=== PATIENT | female | born 1935 | race Caucasian/White ===

== ENCOUNTER → 2016-05-06 | Outpatient (CLI) | payer MEDICARE ==
--- NOTE | 2016-05-06 15:21 | KCIC ---
Left breast digital screening mammograms with CAD: HISTORY Routine screening. History of right breast cancer with mastectomy and implant reconstruction. COMPARISON Comparison is made to previous studies dated 02/19/2015 and 10/28/2013. FINDINGS Breast density category A. The skin and nipple show no abnormalities. No abnormal lymph nodes are seen in the axilla. Left breast implant remains in place. The breast parenchyma is predominately fatty. There are no dominant masses, suspicious calcifications or architectural distortions. IMPRESSION No evidence of malignancy. Recommend routine annual mammographic screening. This study was interpreted with the benefit of Computerized Aided Detection (CAD). Mammography is not 100% sensitive in detecting breast cancer. Therefore, a self breast exam and a clinical breast exam are very important. A negative mammogram does not negate a clinically suspicious finding and should not result in a delay in biopsying a clinically suspicious abnormality. BI-RADS category 1. Negative. This patient's information has been entered into a reminder system for the patient to be notified with the results of this examination and a target date for her next mammograms. Electronically signed by: Rakel Mancilla MD (May 06, 2016 15:19:43)
== END | disposition home or self-care (01) ==
LOC: KCIC MAMMO 13:40
PROVIDERS: ATTEND Family Medicine
DX: Z12.31 Encounter for screening mammogram for malignant neoplasm of breast (principal)
CPT/HCPCS: G0202; 77067

== ENCOUNTER 2016-11-06 17:49 | Emergency (ER) | payer BC, MEDICARE ==
[~2016-11-06] VITALS: Ht 177.8 cm; Wt 52.6 kg
[2016-11-06] MEDS ORDERED: DIPHTH,PERTUSS(ACELL),TET TOX 0.5 ML DISP.SYRIN. VAX IM ONE (20:00)
--- NOTE | 2016-11-06 20:33 | RAD ---
CT HEAD AND CERVICAL SPINE without contrast Clinical indications: The patient fell; headache and neck pain. COMPARISON: None available. HEAD CT WITHOUT CONTRAST Technique: Noncontrast axial cross sectional scanning of the head was performed. PQRS compliance Statement One or more of the following individualized dose reduction techniques were utilized for these studies: 1. Automated exposure control 2. Adjustment of the mA and/or kV according to patient size 3. Use of iterative reconstruction technique Findings: No acute intracranial hemorrhage or midline shift or mass-effect or hydrocephalus or extra-axial fluid collection is seen. No focal hypodense area or sulci effacement is seen to indicate an acute infarct or edema radiographically. No skull fracture or pneumocephalus is seen. No opacification of the mastoid sinuses or the paranasal sinuses is seen. The maxillary sinuses are not completely seen in this study. Impression: No acute intracranial abnormality is seen. CERVICAL SPINE CT WITHOUT CONTRAST TECHNIQUE: Noncontrast helical CT scanning of the cervical spine was performed. Multiplanar 2-D reconstructions were generated. FINDINGS: No acute fracture or discitis or osteolytic process or anterolisthesis is seen.There is degenerative endplate spurring and disc space narrowing throughout the cervical spine. Degenerative facet arthropathy is seen throughout the cervical spine. The facet joints are normally aligned otherwise. Biapical scarring is seen. IMPRESSION: No acute fracture. Degenerative cervical spondylosis. Electronically signed by: Luke Avendano MD (11/06/2016 8:30 PM) [facility]
--- NOTE | 2016-11-06 21:30 | PHYS DOC ---
Past Medical History Past Medical History: A-Fib, Cancer Past Surgical History: Cancer Surgery, Hip Replacement, Hysterectomy Additional Past Surgical Histo: R MASECTOMY, L HIP REPLACED, L SHOULDER SURGERY Alcohol Use: None Drug Use: None Adult General Chief Complaint Chief Complaint: MECHANICAL FALL HPI HPI 81-year-old female presenting to the emergency department today with neck pain and headache after head injury that happened today. She reports having a mechanical fall. This occurred prior to arrival. She denies using blood thinners other than taking a full dose aspirin daily. She also sustained a laceration to the back of her head after falling and hitting the back of her head. She has pain in the back of her head that is mild intermittent nonradiating sharp and without alleviating factors. Review of systems is negative for chest pain shortness of breath abdominal pain or if any injuries to her extremities. She denies passing out or syncopal episode. All other review of systems is negative unless otherwise noted in history of present illness. ED course: 79-year-old female presenting to the emergency department today with a mechanical fall status post head injury. She did sustain a laceration to the back of her head. Vital signs were unremarkable other than mild chronic hypertension. Pertinent physical examination findings showed a 3 cm laceration to the posterior occiput. Tetanus updated. Head neck CT unremarkable. The wound was irrigated and subsequently closed with lashawn. The remainder the patient secondary survey was unremarkable for traumatic injury. The patient was then discharged home in stable condition to follow up with their primary care physician over the next 2-3 days. They were to return if their symptoms worsened or if they were concerned for any reason. [id number] discharge instructions and return precautions were given. Patient's questions were answered to their satisfaction. Patient is comfortable plan. Review of Systems Review of Systems SEE ABOVE. Current Medications Current Medications Current Medications Medications (Trade) Dose Ordered Sig/Arnaldo Start Time Stop Time Status Last Admin Dose Admin Diphtheria/ Tetanus/Acell Pertussis (Boostrix) 0.5 ml ONCE ONCE 11/06/16 20:00 11/06/16 20:01 DC 11/06/16 20:27 0.5 ML Allergies Allergies Allergies Coded Allergies Type Severity Reaction Last Updated Verified No Known Drug Allergies 11/06/16 No Physical Exam Physical Exam SEE ABOVE General Appearance alert, cooperative, no distress, responsive Head Normocephalic, . 3cm lac to posterior occiput without any evidence of depressed skull fracture. Eyes conjunctivae/corneas clear. PERRL, EOM's intact. Ears nl external ear canals AU Nose Nares normal. Septum midline. Mucosa normal. No drainage or sinus tenderness. Throat no blood or lacerations, normal alignment Neck supple, symmetrical, trachea midline, cervical collar in place Back/Spine symmetric, normal curvature. ROM normal, no abrasions, no tenderness to palpation, no step-offs Lungs clear to auscultation bilaterally Chest Wall normal ribcage without tenderness to palpation, crepitus or emphysema Heart [reg] rate and regular rhythm, S1, S2 normal, no murmur, click, rub or gallop Abdomen soft, non-tender. Bowel sounds normal. No masses, no organomegaly Pelvic stable Extremities extremities normal, atraumatic with normal range of motion Pulses 2+ and symmetric Skin Skin color, texture, turgor normal. No rashes or lesions Neurologic Grossly normal Eye opening: (4) spontaneous Best motor response: (6) obeys verbal command Best verbal response: (5) oriented and converses Total Winfred (E + M + V) = 15 Current Patient Data Vital Signs Vital Signs Date Time Temp Pulse Resp B/P (MAP) Pulse Ox O2 Delivery O2 Flow Rate FiO2 11/06/16 22:00 90 22 146/78 (100) 97 Room Air 11/06/16 19:20 98.4 98.4 EKG EKG [] Radiology/Procedures Radiology/Procedures [] Course & Med Decision Making Course & Med Decision Making Pertinent Labs and Imaging studies reviewed. (See chart for details) [] Dragon Disclaimer Dragon Disclaimer This electronic medical record was generated, in whole or in part, using a voice recognition dictation system. Departure Departure Impression: Primary Impression: Neck pain Additional Impressions: Head injury Laceration of head Disposition: HOME, SELF-CARE Condition: STABLE Referrals: JESUS MANUEL MARTINEZ MD (PCP) Additional Instructions: Thank you for allowing us to participate in your care today. Followup with your primary care physician in 3 days if your symptoms do not improve. Call your Primary Doctor tomorrow and inform them of your visit today. If you do not have a primary care provider you can ask for a list of our primary care providers. Return to the emergency department you have any new or concerning findings. This should be evaluated by the primary care physician and any necessary consulting services for continued management within a few days after discharge. Return to emergency room if you have any new or concerning symptoms including but not limited to fever, chills, nausea, vomiting, intractable pain, any new rashes, chest pain, shortness of air, uncontrolled bleeding, difficulty breathing, and/or vision loss. You may have been prescribed medication that can change in your level of thinking and ability to operate machinery. These medications include hydrocodone and Ativan. Also, Benadryl has been known to do this as well. Be sure to check with your pharmacist and ask if the medications you've prescribed can affect your level of consciousness. I recommend not operating heavy machinery or driving while on medication such as these. Scripts Hydrocodone Bit/Acetaminophen (HYDROCODONE-APAP 5-325 ) 1 Each Tablet 1 TAB PO PRN Q6HRS Y for PAIN, #15 TAB 0 Refills Be careful as this medication may cause you to be drowsy or tired. Do not drive on this medication. Prov: CAESAR GALLEGOS MD 11/06/16 Problem Qualifiers CAESAR GALLEGOS MD Nov 06, 2016 21:30
[2016-11-06 22:00] VITALS: BP 146/78
[2016-11-06] MEDS ORDERED: HYDR-2758 PO (22:56)
--- NOTE | 2016-11-07 06:19 | EKG ---
[facility] [address] [place] [address] Test Date: 2016-11-06 Test Time: 19:39:19 Pat Name: BRADLEY GODOY Department: Room: Gender: F Desktop Administrator: : [id number] Requested By: CAESAR GALLEGOS Order Number: [id number] Reading MD: Measurements Intervals [place] Rate: 91 P: 161 NE: 170 QRS: -36 QRSD: 130 T: 70 QT: 400 QTc: 494 Interpretive Statements SINUS RHYTHM ABNORMAL LEFT AXIS DEVIATION LEFT ANTERIOR FASCICULAR BLOCK NON SPECIFIC INTRAVENTRICULAR BLOCK QRS(T) CONTOUR ABNORMALITY CONSISTENT WITH ANTEROSEPTAL INFARCT PROBABLY OLD RI6.01 Unconfirmed report No previous ECG available for comparison
== END 2016-11-06 23:00 | disposition home or self-care (01) ==
LOC: ER 17:49
DX: S01.01XA Laceration without foreign body of scalp, initial encounter (principal); M54.2 Cervicalgia; I48.91 Unspecified atrial fibrillation; I10 Essential (primary) hypertension; Z90.710 Acquired absence of both cervix and uterus; Z96.642 Presence of left artificial hip joint; W18.09XA Striking against other object with subsequent fall, initial encounter; Y93.89 Activity, other specified; Y99.8 Other external cause status; Y92.89 Other specified places as the place of occurrence of the external cause
CPT/HCPCS: 70450; 72125; 90471; 90715; 93005; 99284-25

== ENCOUNTER → 2017-05-25 | Outpatient (CLI) | payer BC | END | disposition home or self-care (01) | LOC: KCIC MAMMO 15:34 | DX: Z12.31 Encounter for screening mammogram for malignant neoplasm of breast (principal); Z85.3 Personal history of malignant neoplasm of breast | CPT/HCPCS: 77067 ==

== ENCOUNTER → 2018-07-26 | Outpatient (CLI) | payer BC ==
[~2018-07-26] MED LIST: HYDR-2761 PO
[2018-07-26 10:42] LABS: ALBUMIN 3.9 g/dL (3.4-5.0); ALBUMIN/GLOBULIN RATIO 1.3 (1.0-1.7); CALCIUM 9.7 mg/dL (8.5-10.1); CREATININE 0.9 mg/dL (0.6-1.0); GFR 59.8; POTASSIUM 4.3 mmol/L (3.5-5.1); TOTAL BILIRUBIN 0.4 mg/dL (0.2-1.0); TOTAL PROTEIN 6.9 g/dL (6.4-8.2)
[2018-07-26 11:00] LABS: BASO % 1 % (0-3); EOS # 0.2 x10^3/uL (0.0-0.7); EOS % 3 % (0-3); HEMATOCRIT 39.5 % (36.0-47.0); HEMOGLOBIN 12.6 g/dL (12.0-15.5); LYMPH # 0.9 x10^3/uL (1.0-4.8); LYMPH % 18 % (24-48); MEAN CORPUSCULAR HEMOGLOBIN 30 pg (25-35); MEAN CORPUSCULAR HGB CONC 32 g/dL (31-37); MEAN CORPUSCULAR VOLUME 95 fL (79-100); MONO # 0.3 x10^3/uL (0.0-1.1); MONO % 7 % (0-9); NEUT # 3.7 x10^3uL (1.8-7.7); NEUT % 72 % (31-73); PLATELET COUNT 156 x10^3/uL (140-400); RED BLOOD COUNT 4.17 x10^6/uL (3.50-5.40); WHITE BLOOD COUNT 5.2 x10^3/uL (4.0-11.0)
[2018-07-26 14:08] LABS: BILIRUBIN,URINE NEGATIVE (NEG); CLARITY,URINE CLOUDY; COLOR,URINE YELLOW; NITRITE,URINE NEGATIVE (NEG); PH,URINE 5.5; PROTEIN,URINE NEGATIVE (NEG-TRACE)
[2018-07-26 14:24] LABS: BACTERIA,URINE MANY /HPF (0-FEW); RBC,URINE RARE /HPF (0-2); SQUAMOUS EPITHELIAL CELL,UR FEW /LPF
--- NOTE | 2018-07-26 16:32 | RAD ---
Renal ultrasound 07/26/2018 INDICATION: Renal failure COMPARISON STUDY: None FINDINGS: Right kidney is unremarkable in appearance measuring 9.6 cm in length. Left kidney is unremarkable in appearance measuring 1.6 cm in length. No focal renal lesion is seen on the right. No nephrolithiasis or hydronephrosis is seen. There is an infrarenal abdominal aortic aneurysm measuring approximately 2.9 cm in diameter. Limited visualization of the bladder is unremarkable. IMPRESSION: 1.Unremarkable sonographic appearance of the kidneys. 2. Infrarenal abdominal aortic aneurysm. Recommend imaging surveillance. Electronically signed by: Jose Kidd MD (07/26/2018 4:29 PM) [id number]
== END | disposition home or self-care (01) ==
LOC: US 15:54
PROVIDERS: ATTEND Internal Medicine Nephrology
DX: I71.4 Abdominal aortic aneurysm, without rupture (principal); N17.8 Other acute kidney failure; I11.0 Hypertensive heart disease with heart failure; I50.22 Chronic systolic (congestive) heart failure; E86.0 Dehydration; I70.1 Atherosclerosis of renal artery; N11.9 Chronic tubulo-interstitial nephritis, unspecified; N14.2 Nephropathy induced by unspecified drug, medicament or biological substance; Z68.1 Body mass index [BMI] 19.9 or less, adult
CPT/HCPCS: 36415; 76770; 80053; 81001; 85025

== ENCOUNTER → 2020-07-23 | Outpatient (CLI) | payer BC, MEDICARE ==
--- NOTE | 2020-07-23 16:03 | RAD ---
EXAM: 3 views left ankle DATE: 07/23/2020 11:05 AM INDICATION: Reason: NON-HEALING WOUND OF LEFT LATERAL ANKLE. / Spl. Instructions: / History: . COMPARISON: No Prior FINDINGS: No evidence of acute fracture or dislocation. Lucency at the medial talar dome likely osteochondral i njury or degenerative change. Given the associated cystic change, favor degenerative change. Calcanea l enthesopathy. Midfoot degenerative changes are seen. IMPRESSION: 1. No evidence of acute fracture or dislocation. 2. Ankle joint degenerative changes including talar dome irregularity and subchondral cystic change. Electronically signed by: Clyde Vo MD (07/23/2020 4:01 PM) [id number]
--- NOTE | 2020-07-24 08:42 | RAD ---
EXAM: LOWER EXTREMITY ARTERIAL DOPPLER SONOGRAM WITH ANKLE-BRACHIAL INDICES (ESTHER). HISTORY: Nonhealing ulcer left ankle. TECHNIQUE: Grayscale and Doppler sonographic evaluation of the lower extremities was performed and pr essure readings were assessed. FINDINGS: There are triphasic waveforms in the left common femoral artery and biphasic waveforms thro ughout the remainder of the left lower extremity arteries without significantly elevated velocities. No visualized focal stenosis. Left brachial pressure: 137 mmHg Left ankle pressure: 143 mmHg Left ankle ESTHER: 1.0 IMPRESSION: 1. No significant stenosis in the left lower extremity. 2. Normal ESTHER of 1.0. Electronically signed by: Richa Delgado MD (07/24/2020 8:39 AM) [id number]
== END ==
LOC: US 11:24
PROVIDERS: ATTEND Emergency Medicine Undersea and Hyperbaric Medicine
DX: I87.012 Postthrombotic syndrome with ulcer of left lower extremity (principal); L97.321 Non-pressure chronic ulcer of left ankle limited to breakdown of skin
CPT/HCPCS: 73610; 93922; 93926

== ENCOUNTER → 2020-08-14 | Outpatient (CLI) | payer BC, MEDICARE ==
[~2020-08-14] MED LIST changes: +GADOTERATE 5 MMOL/10ML VIAL. IVP ONE
--- NOTE | 2020-08-14 15:47 | RAD ---
Study: MRI left ankle with and without contrast INDICATION: Nonhealing wound at the lateral ankle. COMPARISON: Left ankle radiographs 07/23/2020 TECHNIQUE: Multiplanar MR imaging of the left ankle performed both prior to and after the intravenous administration of 11 cc Clariscan. FINDINGS: The sagittal T1 and T2 sequences are degraded by motion. There are some areas of incomplete fat suppr ession. Diagnostic utility is maintained. No signal changes of osteomyelitis at the ankle or throughout the partially imaged foot. Scattered ar throsis such as seen at the dorsum of the naviculocuneiform joint. Plantar calcaneal spurring and ent hesophyte formation at the Achilles insertion. Chronic ossific fragment at the tip of the medial mall eolus could be related to previous trauma. Mild degenerative/posttraumatic remodeling at the lateral malleolus. Intact peroneal tendons. Small peroneal tendon sheath effusion without overt tenosynovitis. Intact PT T, FDL and FHL. No advanced Achilles tendinosis or focal tear. Intact extensors. Small amount of tend on sheath fluid at the knot of Aidan and along the PTT. Scattered fatty infiltration of the intrinsic foot musculature. Muscular edema without enhancement of the flexor digitorum brevis is likely denerv ation related. Intact distal syndesmotic ligaments. Intact ATFL, CFL and PTFL. No acute injury of the deltoid ligament complex. Intact spring ligament. Chronic thickening of the plantar fascia central band. No findings to suggest active plantar fasciiti s. Maintained sinus tarsi fatty signal. Small ankle/posterior subtalar fusions without synovitis. Mildly edematous Kager's fat without enhanc ement. No significant fluid within the retrocalcaneal bursa. In the setting of a reported lateral ank le wound no abscess is identified or deep sinus tract. IMPRESSION: 1. No signal changes of osteomyelitis. The patient's reported lateral foot wound is difficult to del ineate. No deep sinus tract or abscess. 2. No acute tendon or ligamentous injury. Scattered arthrosis and additional chronic observations ou tlined in the body the report. Electronically signed by: LIANNA FUNES MD (08/14/2020 3:44 PM) [facility]
== END ==
LOC: MRI 11:31
PROVIDERS: ATTEND Emergency Medicine Undersea and Hyperbaric Medicine
DX: S91.002A Unspecified open wound, left ankle, initial encounter (principal); X58.XXXA Exposure to other specified factors, initial encounter; Y93.89 Activity, other specified; Y92.89 Other specified places as the place of occurrence of the external cause; Y99.8 Other external cause status
CPT/HCPCS: 73723; A9575